=== PATIENT | male | born 1960 | race Caucasian/White ===

== ENCOUNTER 2021-03-05 15:47 | Emergency (ER) | payer MEDICAID ==
[~2021-03-05] VITALS: Ht 177.8 cm; Wt 71.3 kg
[2021-03-05 16:46] LABS: BASOPHILS % (AUTO) 1 % (0-1); EOSINOPHILS % (AUTO) 1 % (1-7); LYMPHOCYTES % (AUTO) 26 % (22-44); MEAN CORPUSCULAR HEMOGLOBIN 32.6 pg (27.5-34.5); MEAN CORPUSCULAR HGB CONC 33.7 g/dL (33.2-36.2); MONOCYTES % (AUTO) 8 % (2-9); NEUTROPHILS % (AUTO) 64 % (42-75); PLATELET COUNT 226 x10^3/uL (130-400); RED BLOOD COUNT 4.43 x10^6/uL (4.38-5.82); RED CELL DISTRIBUTION WIDTH 12.4 % (9.4-14.8)
[2021-03-05 16:53] LABS: ALBUMIN 4.2 g/dL (3.4-5.0); ANION GAP 5 mmol/L (5-15); CALCIUM 9.2 mg/dL (8.5-10.1); CHLORIDE 108 mmol/L (98-107); CREATININE 1.08 mg/dL (0.7-1.3)
--- NOTE | 2021-03-05 19:18 | NUR ---
pt to room from lobby
--- NOTE | 2021-03-05 19:40 | NUR ---
VS RECHECKED AND UPDATED IN COMPUTER. PT STATES LESS PAIN STANDING/WALKING IN ROOM INSTEAD OF LYING ON GURNEY. PT DESCRIBES PAIN THROUGH GROIN AND PELVIC AREA RATED 8/10 AT WORST. CALL LIGHT WITHIN REACH. AWAITING ERP TO SEE.
--- NOTE | 2021-03-05 20:53 | NUR ---
started 20g in right AC for CT. Sent pt back to ER with iv intact.
--- NOTE | 2021-03-05 21:04 | NUR ---
REPORT TO KALANI THORNTON, TRANSFER OF CARE AT THIS TIME.
[2021-03-05] MEDS ORDERED: CIPROFLOXACIN 500 MG TABLET PO ONE (21:30)
[2021-03-05] MEDS ORDERED: OMNIPAQUE 350 MG/ML, 100ML BOTTLE ONE (21:45)
[2021-03-05] MEDS ORDERED: CIPROFLOXACIN 500 MG TABLET ONE (21:58)
[2021-03-05 22:14] VITALS: BP 107/78
[2021-03-05 22:27] LABS: MICROSCOPIC NOT IND
== END 2021-03-05 22:30 | disposition home or self-care (01) ==
LOC: ED 16:00
DX: N41.0 Acute prostatitis (principal); K60.2 Anal fissure, unspecified
CPT/HCPCS: 36415; 72193; 80048; 81003; 82040; 85025; 99285; Q9967